=== PATIENT | male | born 1985 | race Caucasian/White ===

== ENCOUNTER 2016-12-21 22:38 | Emergency (ER) | payer MEDICAID ==
[~2016-12-21] VITALS: Ht 177.8 cm; Wt 90.7 kg
[2016-12-21] MEDS ORDERED: SODIUM CHLORIDE 0.9% 1,000 ML IV ONE (23:45)
[2016-12-22 00:08] LABS: BASOPHILS % 0.4 % (0.0-2.0); CHLORIDE 106 mEq/L (98-107); EOSINOPHILS % 1.6 % (0.0-5.0); HEMATOCRIT. 39.9 % (42.0-52.0); HEMOGLOBIN. 13.4 g/dL (14.0-18.0); LYMPHOCYTES % 28.7 % (20.0-50.0); MEAN CORPUSCULAR HEMOGLOBIN 29.3 pg (28.0-32.0); MEAN CORPUSCULAR VOLUME 87.2 fL (80.0-94.0); MEAN PLATELET VOLUME 8.2 fl (7.4-10.4); MONOCYTES % 9.4 % (2.0-8.0); NEUTROPHILS % 59.9 % (40.0-76.0); PLATELET 164 x1000/uL (130-400); RED BLOOD CELL COUNT 4.57 mill/uL (4.7-6.1); RED CELL DISTRIBUTION WIDTH 13.4 % (11.6-14.6)
[2016-12-22 00:18] LABS: CARBON DIOXIDE 26 mEq/L (21-32)
[2016-12-22 03:16] VITALS: BP 109/69
== END 2016-12-22 04:00 | disposition home or self-care (01) ==
LOC: ER 23:18
DX: E86.0 Dehydration (principal); R55 Syncope and collapse; Z85.47 Personal history of malignant neoplasm of testis
CPT/HCPCS: 36415; 80053; 85025; 96360; 96361; 99285; Z7610; J7030

== ENCOUNTER 2017-03-26 10:38 | Emergency (ER) | payer MEDICAID ==
[~2017-03-26] VITALS: Ht 175.3 cm; Wt 73.0 kg
[2017-03-26 20:00] VITALS: BP 132/92
== END 2017-03-26 20:30 | disposition home or self-care (01) ==
LOC: ER 11:07
DX: S09.90XA Unspecified injury of head, initial encounter (principal); V89.2XXA Person injured in unspecified motor-vehicle accident, traffic, initial encounter; Y93.89 Activity, other specified; Y99.8 Other external cause status; Y92.89 Other specified places as the place of occurrence of the external cause
CPT/HCPCS: 70450; 99284